=== PATIENT | female | born 1970 ===

== ENCOUNTER 2019-07-21 12:59 | Outpatient (CLI) | payer OTHER | END 2019-07-21 13:00 | disposition home or self-care (01) | LOC: RAD 12:59 | DX: K44.9 Diaphragmatic hernia without obstruction or gangrene (principal); K21.9 Gastro-esophageal reflux disease without esophagitis ==

== ENCOUNTER 2019-09-11 14:44 | Outpatient (CLI) | payer OTHER | END 2019-09-11 14:51 | disposition home or self-care (01) | LOC: MAMO-SONO 14:44 | DX: Z12.31 Encounter for screening mammogram for malignant neoplasm of breast (principal); Z87.898 Personal history of other specified conditions; N60.11 Diffuse cystic mastopathy of right breast; N60.12 Diffuse cystic mastopathy of left breast; R10.2 Pelvic and perineal pain ==